=== PATIENT | male | born 1950 | race Caucasian/White ===

== ENCOUNTER → 2023-08-25 08:46 | Outpatient (REF) | payer MEDICARE, OTHER, SELFPAY | LOC: RAD 08:46 | PROVIDERS: ATTENDING PHYSICIAN Family Medicine | DX: Z87.891 Personal history of nicotine dependence (principal); Z87.898 Personal history of other specified conditions | CPT/HCPCS: 71260; Q9967 ==

== ENCOUNTER → 2024-01-19 07:23 | Outpatient (REF) | payer MEDICARE, OTHER, SELFPAY | LOC: RAD 07:23 | PROVIDERS: ATTENDING PHYSICIAN Family Medicine | DX: R93.89 Abnormal findings on diagnostic imaging of other specified body structures (principal); K76.89 Other specified diseases of liver | CPT/HCPCS: 76700 ==